=== PATIENT | male | born 1955 | race Caucasian/White ===

== ENCOUNTER 2019-03-23 16:42 | Inpatient (IN) | payer OTHER, MEDICARE ==
[~2019-03-23] VITALS: Ht 180.3 cm; Wt 74.3 kg
[2019-03-23] MEDS ORDERED: Megestrol400 MG/10 PO (17:34)
[2019-03-23] MEDS ORDERED: Zocor20 MG (17:35)
[2019-03-23] MEDS ORDERED: Glycotrol Caps1 EACH PO (17:36)
[2019-03-23] MEDS ORDERED: CYCL10 PO (17:36)
[2019-03-23] MEDS ORDERED: BUDE10.22 INH (17:36)
[2019-03-23] MEDS ORDERED: ALBU90OI INH (17:36)
--- NOTE | 2019-03-24 04:50 | NUR ---
SHIFT SUMMARY: 63 Y/O MALE RESTED COMFORTABLY ALL SHIFT, DENIES PAIN OR NAUSEA, TELEMETRY REFLECTS NSR WITH HEART RATE 70 PER ANA CARTON FILLER, PT HAS CONSULTS TODAY FROM DR SORIA--POSSIBLE DIAYLSIS PORT PLACEMENT AND [facility] (CONTACTED VIA ANSWERING SERVICE); SKIN PALE AND DRY, ALERT AND ORIENTED X 2, ABLE TO FOLLOW SIMPLE VERBAL COMMANDS, BED ALARM APPLIED, BED LOW POSITION WITH CALL LIGHT AT SIDE.
[2019-03-24 06:09] LABS: BASOPHILS ABSOLUTE AUTO 0.05 K/mm3 (0.00-0.23); BASOPHILS PERCENT AUTO 1 % (0-2); EOSINOPHILS ABSOLUTE AUTO 0.19 K/mm3 (0.00-0.68); EOSINOPHILS PERCENT AUTO 2 % (0-6); Hematocrit 32.4 % (37.0-53.0); Hemoglobin 10.4 g/dL (13.5-17.5); IMMATURE GRAN ABSOLUTE AUTO 0.09 K/mm3 (0.00-0.10); IMMATURE GRAN PERCENT AUTO 1 % (0-1); LYMPHOCYTES ABSOLUTE AUTO 1.55 K/mm3 (0.84-5.20); LYMPHOCYTES PERCENT AUTO 19 % (21-46); MONOCYTES ABSOLUTE AUTO 0.77 K/mm3 (0.16-1.47); MONOCYTES PERCENT AUTO 10 % (4-13); Mean Corpuscular HGB 28.5 pg (26.0-34.0); Mean Corpuscular HGB Conc 32.1 g/dL (31.5-36.5); NEUTROPHILS ABSOLUTE AUTO 5.36 K/mm3 (1.96-9.15); NEUTROPHILS PERCENT AUTO 67 % (41-73); Platelet Count 239 K/mm3 (150-400); RDW Coefficient Variation 13.5 % (11.7-14.2); RDW Standard Deviation 43.9 fL (35.1-46.3); Red Blood Cell Count 3.65 M/mm3 (4.30-5.90); White Blood Cell Count 8.01 K/mm3 (4.00-11.30)
[2019-03-24 06:13] LABS: Mean Corpuscular Volume 89 fL (80-100)
[2019-03-24 06:41] LABS: Albumin, Blood 2.9 g/dL (3.4-5.0); Anion Gap 7 mmol/L (6-16); Blood Urea Nitrogen 67 mg/dL (8-24); CO2, Blood 21 mmol/L (21-32); Calcium, Blood 11.4 mg/dL (8.5-10.1); Chloride, Blood 111 mmol/L (98-108); Creatinine, Blood 4.48 mg/dL (0.60-1.20); Glomerular Filtration Rate 14 (60-); Glucose, Blood 97 mg/dL (70-99); Magnesium, Blood 2.4 mg/dL (1.6-2.4); Phosphorus, Blood 3.5 mg/dL (2.5-4.9); Potassium, Blood 5.7 mmol/L (3.5-5.5); Sodium, Blood 139 mmol/L (136-145)
--- NOTE | 2019-03-24 16:02 | NUR ---
Patient is stiing up in bed and alert. Patient has a hearing aid in but struggles to hear. Patient is talkative and tells me about his family, his jorge (Christian) and his medical history. Patient is believing God for a miracle and testifies that he has had miracle healings in the past. He believes God can heal him he just doesn't know if it is his tiem to go or not. Patient is very kind and upbeat but gets teary eyed when I provide prayer for him. He quickly changes the subject to avoid further investigation as to why the tears. Patient voices repeatedly his gratitude for my time and for the prayer. I will continue to remain available to patient and family.
--- NOTE | 2019-03-24 18:52 | NUR ---
SHIFT SUMMARY PT AXO, PLEASANT AND COOPERATIVE WITH CARE THOUGH [place]. VSS. PT NPO THROUGHOUT THE DAY. DIALYSIS CATH PLACED IN L. UPPER CHEST THIS AFTERNOON, SEE NOTE. PT DENIES PAIN BUT COMPLAINS OF BEING TIRED AND WANTING TO SLEEP TONIGHT. DR RANKIN NOTIFIED AND NEW ORDERS PLACED FOR MEDICATION TO HELP PT SLEEP. BED IN LOW POSITION, CALL LIGHT WITHIN REACH, BED ALARM ON.
[2019-03-25 05:08] LABS: Hematocrit 33.1 % (37.0-53.0); Hemoglobin 10.4 g/dL (13.5-17.5)
[2019-03-25 05:25] LABS: Anion Gap 7 mmol/L (6-16); Blood Urea Nitrogen 64 mg/dL (8-24); Bun/Creatinine Ratio 14.3 (12.0-20.0); CO2, Blood 21 mmol/L (21-32); CPK Creatine Kinase 103 U/L (39-308); Calcium, Blood 10.8 mg/dL (8.5-10.1); Chloride, Blood 113 mmol/L (98-108); Creatinine, Blood 4.46 mg/dL (0.60-1.20); Glomerular Filtration Rate 14 (60-); Glucose, Blood 85 mg/dL (70-99); Magnesium, Blood 2.2 mg/dL (1.6-2.4); Phosphorus, Blood 3.4 mg/dL (2.5-4.9); Potassium, Blood 5.2 mmol/L (3.5-5.5); Sodium, Blood 141 mmol/L (136-145); Uric Acid, Blood 8.5 mg/dL (3.5-7.2)
--- NOTE | 2019-03-25 05:46 | NUR ---
Shift summary: Patient is A&O x4, VS have remained stable s/p permacath placement 03/24/19. Patient was given Restoril at HS for sleep with poor effect. Pain is reported in left chest wall, permacath site. Tylenol was given with poor effect. orthopedically impaired teacher MD was notified of unrelieved pain and order for tramadal 100mg po q 8 hours was obtained. Patient had good effect from tramadol. Patient has verbalized anxiety and uncertainty about recent medical diagnosis and is unable to sleep due to these thoughts. Patient is allowed to verbalize feelings and is given emotional support.
--- NOTE | 2019-03-25 09:15 | NUR ---
PT TO DIALYSIS.
--- NOTE | 2019-03-25 17:41 | NUR ---
SHIFT SUMMARY- PT A/O, COOPERATIVE AND PLESANT. PT TO DILAYSIS TODAY. PT TOLERATED WELL. PT AND SON DROVE IN FROM [place] TO [facility]. DR BROWN REPORTED PLAN TO TRANSFER PT TO [place] TOMORROW. PT APPETITE IS POOR. PT IV IS SALINE LOCKED AND FLUSHING WELL.
--- NOTE | 2019-03-26 03:55 | NUR ---
RESTING QUIETLY WITH FEW INTERRUPTIONS THIS SHIFT. AFFECT AND BEHAVIOR CHEERFUL AND ATTENTIVE WHEN INTERACTING. NO NOTED ACUTE DISTRES OF THIS WRITING. CALL LIGHT IN REACH.
[2019-03-26 05:09] LABS: HBSAG SCREEN Negative (Negative); HEP A AB, IGM Negative (Negative); HEP B CORE AB, IGM Negative (Negative); HEP C VIRUS AB 0.2 (0.0-0.9)
[2019-03-26 05:54] LABS: Hematocrit 30.7 % (37.0-53.0); Hemoglobin 9.8 g/dL (13.5-17.5)
[2019-03-26 06:18] LABS: Albumin, Blood 2.8 g/dL (3.4-5.0); Anion Gap 8 mmol/L (6-16); Blood Urea Nitrogen 41 mg/dL (8-24); Bun/Creatinine Ratio 10.9 (12.0-20.0); CO2, Blood 26 mmol/L (21-32); Calcium, Blood 9.9 mg/dL (8.5-10.1); Chloride, Blood 105 mmol/L (98-108); Creatinine, Blood 3.76 mg/dL (0.60-1.20); Glomerular Filtration Rate 17 (60-); Glucose, Blood 95 mg/dL (70-99); Magnesium, Blood 2.1 mg/dL (1.6-2.4); Phosphorus, Blood 2.9 mg/dL (2.5-4.9); Potassium, Blood 4.4 mmol/L (3.5-5.5); Sodium, Blood 139 mmol/L (136-145)
--- NOTE | 2019-03-26 09:09 | NUR ---
PT TO DIALYSIS.
--- NOTE | 2019-03-26 17:00 | NUR ---
PT LEFT UNIT VIA GURNEY AT 1700 WITH [facility] TO TRANSPORT TO [facility] FOR UROLOGY CARE. REPORT CALLED TO CHRIS. PT FAMILY AT BEDSIDE MOST OF THE DAY. PT A/O, PLESANT AND COOPERATIVE. DILAYSIS TODAY, PT TOLERATED WELL.
== END 2019-03-26 16:59 | disposition short-term general hospital (02) | DRG 683 ==
LOC: ER 16:42 → MEDS 22:01 → ENPENDDIS 03-26 15:52 → MEDS 03-26 16:59
PROVIDERS: Internal Medicine Nephrology; Nurse Practitioner Acute Care; ADMIT Hospitalist
DX: N17.9 Acute kidney failure, unspecified (principal); C78.00 Secondary malignant neoplasm of unspecified lung; C64.9 Malignant neoplasm of unspecified kidney, except renal pelvis; E87.2 Acidosis; E87.1 Hypo-osmolality and hyponatremia; G89.29 Other chronic pain; M54.2 Cervicalgia; E78.5 Hyperlipidemia, unspecified; E87.5 Hyperkalemia; J44.9 Chronic obstructive pulmonary disease, unspecified; R63.4 Abnormal weight loss; D63.1 Anemia in chronic kidney disease; E83.52 Hypercalcemia; E11.22 Type 2 diabetes mellitus with diabetic chronic kidney disease; N18.9 Chronic kidney disease, unspecified; E88.09 Other disorders of plasma-protein metabolism, not elsewhere classified; Z87.891 Personal history of nicotine dependence
CPT/HCPCS: 36415; 36558; 70450; 71250; 74176; 76937; 80069; 80074; 82550; 82947; 83735; 84550; 85014; 85018; 85025; 86317; 93005; 93010; 94640; 94760; 96374; 99152; 99153; 99285-25; A9270; C1750; C1769; J0881; J1644; J2250; J3010; J7030; J7040

== ENCOUNTER 2019-05-11 16:12 | Inpatient (IN) | payer OTHER, MEDICARE ==
[~2019-05-11] VITALS: Ht 180.3 cm; Wt 76.8 kg
[~2019-05-11 16:12] MED LIST: ALBU90OI INH; BUDE10.22 INH; CYCL10 PO; Glycotrol Caps1 EACH PO; Megestrol400 MG/10 PO; Zocor20 MG
[2019-05-11 16:35] LABS: Calcium, Ionized (POC) 1.03 mmol/L (1.10-1.46); Chloride (POC) 101 mmol/L (98-108); Creatinine (POC) 8.3 mg/dL (0.8-1.3); Glucose (ISTAT POC) 118 mg/dL (70-99); Hemoglobin (POC) 8.8 g/dL (13.5-17.5); Potassium (POC) 5.6 mmol/L (3.5-5.5); Sodium (POC) 135 mmol/L (135-148); Total CO2 (POC) 25 mmol/L (21-32)
[2019-05-11] MEDS ORDERED: MULVITB PO (16:35)
[2019-05-11 16:53] LABS: BASOPHILS ABSOLUTE AUTO 0.07 K/mm3 (0.00-0.23); BASOPHILS PERCENT AUTO 0 % (0-2); EOSINOPHILS ABSOLUTE AUTO 0.31 K/mm3 (0.00-0.68); EOSINOPHILS PERCENT AUTO 2 % (0-6); Hematocrit 28.3 % (37.0-53.0); Hemoglobin 8.4 g/dL (13.5-17.5); IMMATURE GRAN ABSOLUTE AUTO 0.42 K/mm3 (0.00-0.10); IMMATURE GRAN PERCENT AUTO 2 % (0-1); LYMPHOCYTES ABSOLUTE AUTO 2.69 K/mm3 (0.84-5.20); LYMPHOCYTES PERCENT AUTO 15 % (21-46); MONOCYTES ABSOLUTE AUTO 1.44 K/mm3 (0.16-1.47); MONOCYTES PERCENT AUTO 8 % (4-13); Mean Corpuscular HGB 29.8 pg (26.0-34.0); Mean Corpuscular HGB Conc 29.7 g/dL (31.5-36.5); Mean Platelet Volume 10.6 fL (9.1-12.4); NEUTROPHILS ABSOLUTE AUTO 12.99 K/mm3 (1.96-9.15); NEUTROPHILS PERCENT AUTO 73 % (41-73); NRBC ABSOLUTE 0.05 K/mm3 (0.00-0.02); NRBC Auto 0.3 /100 WBC (0.0-0.2); Platelet Count 351 K/mm3 (150-400); RDW Coefficient Variation 19.8 % (11.7-14.2); RDW Standard Deviation 62.3 fL (35.1-46.3); Red Blood Cell Count 2.82 M/mm3 (4.30-5.90); White Blood Cell Count 17.92 K/mm3 (4.00-11.30)
[2019-05-11 16:57] LABS: Mean Corpuscular Volume 100 fL (80-100)
[2019-05-11 17:26] LABS: Albumin, Blood 2.2 g/dL (3.4-5.0); Albumin/Globulin Ratio 0.5 (0.8-1.8); Bilirubin, Total 0.6 mg/dL (0.1-1.0); Bun/Creatinine Ratio 10.8 (12.0-20.0); Calcium, Blood 8.5 mg/dL (8.5-10.1); Creatinine, Blood 7.7 mg/dL (0.60-1.20); Globulin, Blood 4.5 g/dL (2.2-4.0); Magnesium, Blood 2.7 mg/dL (1.6-2.4); Phosphorus, Blood 6.6 mg/dL (2.5-4.9); Potassium, Blood 5.4 mmol/L (3.5-5.5); Total Protein, Blood 6.7 g/dL (6.4-8.2)
[2019-05-11 17:29] LABS: Troponin I 0.102 ng/mL (0.000-0.040)
--- NOTE | 2019-05-11 20:53 | NUR ---
PATIENT ARRIVED TO ICU 11 VIA GURNEY WITH BIPAP IN PLACE. PATIENT AWAKE ANSWERING SIMPLE QUESTIONS. ONLY ABLE TO SPEAK IN 1-2 WORD SENTENCES DUE TO BEING SOB. PLACED ON 4L/NC WHEN OFF BIPAP FOR SHORT TIME. LEVOPHED INFUSING AT 6 MCG DUE TO HYPOTENSION. PATIENT TRANSFERRED TO BED USING SLIDER SHEET AND PLACED ON ICU MONITORS. [facility] CALLED FOR [facility]IENT INFORMATION FOR ADMIT HX.
--- NOTE | 2019-05-11 22:35 | NUR ---
DOCTOR FELIPE NOTIFIED OF CONSULT, SEE NEW ORDERS.
[2019-05-11 22:53] LABS: PCO2 Arterial 37.2 mmHg (35-45); PO2 Arterial 63.7 mmHg (80-100); pH Blood Arterial 7.41 (7.35-7.45)
[2019-05-11 23:57] LABS: Troponin I 0.076 ng/mL (0.000-0.040)
[2019-05-12] MEDS ORDERED: DOCU100 PO (01:08)
[2019-05-12] MEDS ORDERED: PREG150 PO (01:10)
[2019-05-12] MEDS ORDERED: SENN187 PO (01:10)
[2019-05-12] MEDS ORDERED: CYCL10 PO (01:12)
[2019-05-12] MEDS ORDERED: Simvastatin40 MG PO (01:13)
[2019-05-12] MEDS ORDERED: Aspir 8181 MG PO (01:14)
[2019-05-12 03:49] LABS: BASOPHILS ABSOLUTE AUTO 0.08 K/mm3 (0.00-0.23); BASOPHILS PERCENT AUTO 1 % (0-2); EOSINOPHILS ABSOLUTE AUTO 0.47 K/mm3 (0.00-0.68); EOSINOPHILS PERCENT AUTO 3 % (0-6); Hematocrit 29.6 % (37.0-53.0); Hemoglobin 8.7 g/dL (13.5-17.5); IMMATURE GRAN ABSOLUTE AUTO 0.47 K/mm3 (0.00-0.10); IMMATURE GRAN PERCENT AUTO 3 % (0-1); LYMPHOCYTES ABSOLUTE AUTO 2.09 K/mm3 (0.84-5.20); LYMPHOCYTES PERCENT AUTO 12 % (21-46); MONOCYTES ABSOLUTE AUTO 1.33 K/mm3 (0.16-1.47); MONOCYTES PERCENT AUTO 8 % (4-13); Mean Corpuscular HGB 29.8 pg (26.0-34.0); Mean Corpuscular HGB Conc 29.4 g/dL (31.5-36.5); Mean Corpuscular Volume 101 fL (80-100); Mean Platelet Volume 10.2 fL (9.1-12.4); NEUTROPHILS ABSOLUTE AUTO 13.17 K/mm3 (1.96-9.15); NEUTROPHILS PERCENT AUTO 75 % (41-73); NRBC ABSOLUTE 0.03 K/mm3 (0.00-0.02); NRBC Auto 0.2 /100 WBC (0.0-0.2); Platelet Count 324 K/mm3 (150-400); RDW Coefficient Variation 20.2 % (11.7-14.2); RDW Standard Deviation 63.3 fL (35.1-46.3); Red Blood Cell Count 2.92 M/mm3 (4.30-5.90); White Blood Cell Count 17.61 K/mm3 (4.00-11.30)
[2019-05-12 04:06] LABS: International Normalized Ratio 0.98; Prothrombin Time Results 10.4 Sec (9.7-11.5)
[2019-05-12 04:14] LABS: Magnesium, Blood 2.7 mg/dL (1.6-2.4)
[2019-05-12 04:18] LABS: Albumin, Blood 2.2 g/dL (3.4-5.0); Albumin/Globulin Ratio 0.5 (0.8-1.8); Bilirubin, Total 0.4 mg/dL (0.1-1.0); Bun/Creatinine Ratio 10.6 (12.0-20.0); Calcium, Blood 8.5 mg/dL (8.5-10.1); Creatinine, Blood 8.01 mg/dL (0.60-1.20); Globulin, Blood 4.5 g/dL (2.2-4.0); Phosphorus, Blood 6.6 mg/dL (2.5-4.9); Potassium, Blood 5.6 mmol/L (3.5-5.5); Total Protein, Blood 6.7 g/dL (6.4-8.2)
--- NOTE | 2019-05-12 06:07 | NUR ---
SUMMARY PATIENT USING BIPAP T/O NIGHT WITH SHORT BREAKS ON 4L/NC. PATIENT CONTINUES TO BECOME SOB WITH SLIGHT ACTIVITY. ORIENTATED TO PERSON AND BEING IN THE HOSPITAL. PATIENT UNABLE TO SARAH LAYING FLAT OR LAYING ON SIDE FOR LONG. LEVOPHED CONTINUES, TITRATING TO 4 MCG. DOCTOR FELIPE IN TO SEE PATIENT AGAIN THIS AM, PLAN TO HAVE DIALYSIS FIRST THING THIS AM WITH 1 UNIT PRBC WITH DIALYSIS AND TO OBTAIN BLOOD CX FROM DIALYSIS LINE TODAY. ALSO PLAN TO HAVE ECHO AND ULTRA SOUND GUIDE THORACENTESIS TODAY.
--- NOTE | 2019-05-12 08:00 | NUR ---
ASSESSMENT- PT AWAKE, ALERT, ABLE TO SAY BRIEF ANSWERS TO QUESTIONS, FOLLOWS DIRECTIONS. ON BIPAP, DENIES SOB AT REST BUT BIPAP REMOVED BRIEFLY AND BECAME QUICKLY SOB. REPOSITIONED WITH IMPROVEMENT. LUNGS BRONCHIAL SOUNDS LEFT BASE, DIMINISHED RIGHT BASE. SBP 80-90'S. LEVOPHED GTT AT 2 MCG/MIN, PIV X 2 INTACT. NO APPETITE. SUPRIYA CANSECO SETTING UP FOR DIALYSIS. COCCYX DDI. LEGS AND FEET SWOLLEN
--- NOTE | 2019-05-12 08:46 | NUR ---
DIALYSIS STARTED. TO GET ONE UNIT BLOOD WITH DIALYSIS. DR. MCKINLEY HERE-UPDATED. PT WITH INCREASED WOB, RR 30. FI02 INCREASED TO 75% TO MAINTAIN SATURATIONS. HYPOTENSIVE. LEVOPHED INCREASED TO 5 MCG/MIN. LEFT WRIST SITE TENDER, CHANGED TO RIGHT AC SITE-BLOOD RETURN PRESENT
--- NOTE | 2019-05-12 09:15 | NUR ---
RESPIRATORY TREATMENT, CHANGES TO BIPAP PER THERAPIST. PT BREATHING IMPROVED, ABLE TO RELAX. BP IMPROVED. BLOOD INFUSED WITH DIALYSIS
--- NOTE | 2019-05-12 10:57 | NUR ---
PT'S CALLED-UPDATED. DIALYSIS INCOMPLETE-CATHETER NOT INFUSING. PAWEL NOTIFIED . CATH LIDIA TO BE PLACED. PT AWAKE, ALERT. TOLERATING BIPAP. LEVOPHED AT 2 MCG/MIN
--- NOTE | 2019-05-12 11:12 | NUR ---
HEMODIALYSIS WITH ONE UNIT PRBC ORDERED THIS AM BY DR WANG. HD STARTED WITHOUT PROBLEM WITH QB 250 ML/MIN. PRBC STARTED AND INFUSING WELL. AT ABOUT 30 MIN INTO TREATMENT ARTERIAL FLOW FROM CVC BEGAN TO SPASM IN CONJUCTION WITH PATIENT'S RESPIRATORY DISTRESS. SOON THE BLOOD IN THE SYSTEM BEGAN TO DARKEN AND VENTURA PRESSURE BEGAN TO RISE. TRANSFUSION WAS STOPPED AND BLOOD WAS IMMEDIATELY REURNED. THE DIALYZER WAS VERY DARK AND DIFFICULT TO CLEAR. SMALL ENGINE MECHANIC WAS RENEWED AND TX WAS RESTARTED AND TRANSFUSION WAS COMPLETED. ARTERIAL FLOW AGAIN BEGAN TO DIMINISH AND WITHIN 30 MIN CVC WAS UNABLE TO GIVE ADEQUATE FLOW FOR HD FROM EITHER PORT. ACTIVASE 2 MG WAS INSTILLED IN EACH CVC PORT FOR 30 MIN DWELL. AFTER DWELL, FULL ASPIRATION FROM EITHER PORT WAS STILL NOT POSSIBLE. AFTER CONSULT WITH DR WANG, ADDITIONAL DOSE OF ACTIVASE WAS INSTILLED IN EACH CVC PORT FOR MULTI HOUR DWELL. WILL RECHECK LATER TODAY FOR EFFICACY.
[2019-05-12 11:23] LABS: Vancomycin, Random 19.5 ug/mL
--- NOTE | 2019-05-12 12:19 | NUR ---
Echocardiogram completed.
--- NOTE | 2019-05-12 13:29 | NUR ---
PT AWAKE, ABLE TO FOLLOW DIRECTIONS. GIVEN SIPS WATER-POOR TOLERANCE FOR ANY ACTIVITY, SATURATIONS DECREASE QUICKLY TO 80% WITHOUT BIPAP EVEN WITH NASAL CANNULA. PICKING AT SOME LINES. LEVOPHED REMAINS OFF
--- NOTE | 2019-05-12 14:51 | NUR ---
THORACENTESIS DONE AT BEDSIDE. PT ABLE TO SIT UP AT EDGE OF BED WITH ASSIST. TOLERATED MOVEMENT FAIR. HEARTRATE 90'S. DENIES PAIN BUT DOES MOAN AT TIMES. 1400 CC REDDISH FLUID FROM THORANCESIS. LUNGS CLEAR, BRONCHIAL LEFT BASE, IMPROVED SOUNDS RIGHT BASE.
[2019-05-12 15:30] LABS: Automated BF RBC Count 0.032 M/mm3 (0-0); Automated BF WBC Count 0.302 K/mm3 (0-999); Body Fluid WBC Count 302 /mm3 (0-999); RBC Count, Body Fluid 32000 /mm3 (0-0)
[2019-05-12 15:33] LABS: Albumin, Body Fluid 1.9 g/dL; Glucose, Body Fluid 119 mg/dL; Lactate Dehydrogenase, Body Fl 180 U/L; Protein, Body Fluid 4.1 g/dL
--- NOTE | 2019-05-12 15:43 | NUR ---
HYPOTENSIVE SBP 80'S. PT AWAKE, ALERT. STATES BREATHING EASIER. DR. MCKINLEY HERE-UPDATED. ORDERS FOR PICC LINE. DIALYSIS BEING SET UP.
[2019-05-12 16:40] LABS: Total Cell Count, Body Fluid 100
[2019-05-12 16:41] LABS: Appearance, Body Fluid Cloudy (Clear); Color, Body Fluid Amber (None-Yellow)
[2019-05-12 17:00] LABS: pH, Body Fluid 6.1
--- NOTE | 2019-05-12 18:48 | NUR ---
DIALYSIS COMPLETE. LEVOPHED REMAINS ON FOR BP SUPPORT. PREPARING FOR PICC LINE PLACEMENT. PT'S HERE-UDPATED. PT TOOK FEW BITES PUDDING WITH ASSIST, DESATS WHEN OFF BIPAP EVEN WITH 15 OXYMIZER. LARGE TIDAL VOLUMES ON BIPAP. SKIN PALE, DRY. ANURIC.
--- NOTE | 2019-05-12 18:49 | NUR ---
Spiritual Care inital note: Mr. Cortes did not speak to me. He was trembling and held onto my hand tightly while I sat with him. Provided calm presence, assurance of care, and prayer. No family/friends present. I will remain available.
--- NOTE | 2019-05-12 21:55 | NUR ---
ASSUMPTION OF CARE: PT ALERT AND AWAKE AT BEGINNING OF SHIFT. FOLLOWS DIRECTIONS HOWEVER DOES NOT VERBALIZE NEEDS. PT FEBRILE AT 99.6. PT UNDERWENT THORACENTESIS TODAY. LUNG SOUNDS COURSE AND DIM. ON BIPAP 05/16, FI02 70%. PT IS UNABLE TO BE OFF BIPAP AND ON OXYMIZER FOR LONG, IMMEDIATELY DESATTING TO [id number]. PT IN SR, HR IN THE 80S, SBP IN THE 90S WITH LEVOPHED AT 5MCG. ANURIA AND WILL TAKE SIPS OF WATER. IV IN RAC, PICC IN YONI-CURRENTLY INFUSING. PT IS ON DIALYSIS, CATH IN L CHEST. ESRD W/ RENAL CELL CARCINOMA. REPORTEDLY BEGAN CHEMO LAST WEEK AND WILL RECEIVE CHEMO ONCE A MONTH ACCORDING TO . CODE STATUS DISCUSSED WITH . PER PT IS FULL CODE.
[2019-05-13 04:08] LABS: BASOPHILS ABSOLUTE AUTO 0.03 K/mm3 (0.00-0.23); BASOPHILS PERCENT AUTO 0 % (0-2); EOSINOPHILS ABSOLUTE AUTO 0.12 K/mm3 (0.00-0.68); EOSINOPHILS PERCENT AUTO 1 % (0-6); Hematocrit 27.7 % (37.0-53.0); Hemoglobin 8.2 g/dL (13.5-17.5); IMMATURE GRAN PERCENT AUTO 3 % (0-1); LYMPHOCYTES ABSOLUTE AUTO 2.09 K/mm3 (0.84-5.20); LYMPHOCYTES PERCENT AUTO 12 % (21-46); MONOCYTES ABSOLUTE AUTO 1.17 K/mm3 (0.16-1.47); MONOCYTES PERCENT AUTO 7 % (4-13); Mean Corpuscular HGB 29.5 pg (26.0-34.0); Mean Corpuscular HGB Conc 29.6 g/dL (31.5-36.5); Mean Corpuscular Volume 100 fL (80-100); Mean Platelet Volume 10.4 fL (9.1-12.4); NEUTROPHILS PERCENT AUTO 78 % (41-73); NRBC ABSOLUTE 0.03 K/mm3 (0.00-0.02); NRBC Auto 0.2 /100 WBC (0.0-0.2); Platelet Count 284 K/mm3 (150-400); RDW Coefficient Variation 19.8 % (11.7-14.2); RDW Standard Deviation 60.3 fL (35.1-46.3); Red Blood Cell Count 2.78 M/mm3 (4.30-5.90); White Blood Cell Count 18.11 K/mm3 (4.00-11.30)
[2019-05-13 04:29] LABS: Albumin/Globulin Ratio 0.5 (0.8-1.8); Bilirubin, Total 0.5 mg/dL (0.1-1.0); Bun/Creatinine Ratio 9.6 (12.0-20.0); Calcium, Blood 8.2 mg/dL (8.5-10.1); Creatinine, Blood 6.36 mg/dL (0.60-1.20); Globulin, Blood 4.2 g/dL (2.2-4.0); Magnesium, Blood 2.4 mg/dL (1.6-2.4); Phosphorus, Blood 5.4 mg/dL (2.5-4.9); Potassium, Blood 4.8 mmol/L (3.5-5.5); Total Protein, Blood 6.2 g/dL (6.4-8.2)
--- NOTE | 2019-05-13 05:54 | NUR ---
SHIFT SUMMARY: PT ALERT HOWEVER SOMEWHAT AGITATED AT TIMES. ABLE TO FOLLOW COMMANDS. FEBRILE THROUGHOUT SHIFT WITH TEMP IN THE 99S. LUNG SOUNDS TIGHT AND DIM IN BASES. SP02 >90% ON BIPAP. SETTINGS ARE 12/7, FI02 70%. PT AT TIMES DID NOT TOLERATE BIPAP WELL AND WOULD OCCASIONALLY TAKE BIPAP OFF RESULTING IN RAPID DESATS INTO MID 80S. PT WAS ABLE TO TOLERATE OXYMIZER FOR VERY SHORT PERIODS OF TIME BEFORE REQUIRING BIPAP. PT IN SR WITH OCC PACS. SBP IN BETWEEN 90S-110S, HR IN THE 80S. BOWET TONES X 4, NO BM THIS SHIFT. PT HAS NOT PRODUCED ANY URINE THIS SHIFT. IS A DIALYSIS PT WITH ESRD/RENAL CARCINOMA. DIALYSIS CATH TO L UPPER CHEST. RAC IN PLACE AND SL. PICC TO YONI INFUSING WITH LEVOPHED AT 9MCG.
--- NOTE | 2019-05-13 07:20 | NUR ---
ASSUMED CARE AT 0700. REPORT FROM KIMBERLY CANSECO. PT RESTING IN BED. BIPAP IN PLACE, 05/16 70%. LUNGS c CRACKLES ON LEFT SIDE, DIMINSHED IN BASES. PER NOC RN, PT DID NOT TOLERATE BEING OFF BIPAP, RT CONSULTS FOR POSSIBLE AIRVO PLACEMENT TODAY. PT MAKES EYE CONTACT. VERY [place]. FOLLOWS COMMANDS. ABD ROUND, SOFT NON TENDER, BT X 4. SKIN C/D/I. POWERGLIDE TO LUE, INFUSING LEVOPHED AT 8 MCG/MIN. WILL CONTINUE TO TITRATE FOR MAP >60. PERMACATH TO RIGHT CHEST WALL, DRESSING C/D/I. CALL LIGHT IN REACH. WILL CONTINUE TO MONITOR.
--- NOTE | 2019-05-13 08:44 | NUR ---
DR BERNARDO IN TO SEE PT. PT CURRENTLY ON AIRVO, 60l 88%, SATS MID 90'S. PT [place]. GIVES ON2 WORD RESPONSES c SPOKEN TO LOUDLY. STATES HE IS ON HOME O2 AT 2L. DENIES PAIN. CALL PLACED TO NAEEM, SO, SCHEDULED APPT FOR 1100 FOR HER TO SPEAK c DR BERNARDO IN ROOM. WILL CONTINUE TO MONITOR.
--- NOTE | 2019-05-13 12:15 | NUR ---
DIALYSIS KICK PLATE INSTALLER CALLED AND THEN PALLITIVE CARE RN CAME TO TELL US THAT THE FAMILY IS MAKING A DECISION FOR COMFORT CARE. NO DIALYSIS AT THIS TIME.
--- NOTE | 2019-05-13 12:41 | NUR ---
MEETING c CHANDLER TONG FROM [facility] AND NAEEM. PROGNOSIS AND CARE PLAN DISCUSSED. NAEEM STATES SHE IS GOING TO DISCUSS c SON AND DAUGHTER COMFORT CARE AND COME BACK AFTER A DECISION IS MADE. ALL QUESTIONS ANSWERED AT THIS TIME. PHONE NUMBER PROVIDED FOR SON AND DAUGHTER TO USE IF NECESSARY.
--- NOTE | 2019-05-13 14:03 | NUR ---
Called by physician to meet with patient and his . Review of prognosis and care needs. Review of end of life care with . She was expecting to have to conversation. Pt demonstrated understanding and acceptance of his care needs and end of life needs. She spoke with their children and thay all agree it time for comfort measures and hospice. She will tell the patient. He is very hard of hearing. Met with her she had questions about funneral care needs and the process. Will get her VA information and updated chaplian [place] on her needs.
--- NOTE | 2019-05-13 16:03 | NUR ---
pt not able to hear well enough or track conversation. states he has been incresing in his cinfusion and anexiety and less speaking and eating. pt and children decided on confort care. physician notified. pt does not want us to use certain language with patient. She states if we talk of deth or dying or hospice if he can hear us he will panic. They state this has been getting worse. We will respect her request and have chaplian assist her. She states he is very protective of the family and gets anxious if they are upset or express much emotion. she states they all knew this was going to happen but they have not talked about it until today.
--- NOTE | 2019-05-13 16:55 | NUR ---
SHIFT SUMMARY PT c AIRVO 60L, 88%, O2 SATS MID 90'S. PT WORE AIRVO MOST OF SHIFT. FAMILY MEETING c , NAEEM, CHANDLER, PALLATIVE JUANIS AND DR MCKINLEY. NAEEM NOTIFIED EXTENDED FAMILY BY PHONE. PT STATUS CHANGED TO COMFORT CARE, DNR. PER NAEEM REQUEST, PT NOT TO BE INFORMED OF COMFORT CARE. NAEEM EXPRESSED CONCERNS ABOUT ANXIETY IF PT KNEW. DISCUSSED c CHANDLER AND OUTSIDE ENERGY SALES REPRESENTATIVES. ATTEMPTED TO FEED PT TODAY. PT DOES NOT HAVE DENTURES. GIVEN PO FLUIDS AND POPSICLES s DIFFICULTY. NO URINARY OUTPUT TODAY. ESRD. STATUS CHANGE TO MEDICAL, AWAITING TRANSFER. REPORT TO ONCOMING NURSE.
--- NOTE | 2019-05-13 17:43 | NUR ---
PT TO MEDICAL FLOOR. REPORT TO JOHN CANSECO. ALL BELONGINGS c PT.
--- NOTE | 2019-05-13 18:09 | NUR ---
RECEIVED PT 1944 FROM ICU. PT IS C/CARE. ALERT TO SELF, FAMILY. ANSWERS OCC QUEST. VERY [place]. SON IN ROOM. DENIES PAIN., ON AIRVO AT 60L/88% AT THIS TIME. RESTING RELAXED . FAMILY STATES CAN BE VERY HIGH ANX. MEDS AVAIL IF NEED. BED IN LOW POSITION, CALL LITE IN REACH, CALLS APPRO-P
--- NOTE | 2019-05-13 21:00 | NUR ---
FAMILY JUST LEFT. HE CONTINUES TO SIT UP IN BED. MOVES AROUND ONCE IN A WHILE DYSPNEA NOTED, RESTLESSNESS OCCATIONALLY. DENIES ANY NEED FOR MEDS EVEN THOUGH HE SEEMS TO BE UNCOMFORTABLE. WILL CONTINUE TO SEE IF i CAN TALK HIM INTO TAKING SOMETHING FOR HIS ANXIETY TO GET HIM CALM.
--- NOTE | 2019-05-13 22:12 | NUR ---
WAS ABLE TO TALK HIM INTO TAKING 1 MG OF ATIVAN TO HELP WITH HIS ANXIETY IT IS CAUSING HIM TO BE RESTLESS AND PULLING OFF HIS MASK TWICE NOW. HE HAS SAT UP IN BED TRYING TO CATCH HIS BREATH DUE TO AIR HUNGER. WILL CONTINUE TO MONITOR TO SEE IF THIS WORKS, IF NOT WILL TRY TO GIVE SOME ROXINAL IF HE WILL TAKE IT.
--- NOTE | 2019-05-13 23:46 | NUR ---
PATIENT VISITING WITH FAMILY, BROUGHT IN DOGS TO SEE HIM, SON IS ALSO IN THE ROOM. HE IS ON A AIRVO AT 60% OXYGEN. HE GETS ANXIOUS EVERY NOW AND THEN BUT TENDS TO SETTLE DOWN WITH THE FAMILY THERE. WILL CONTINUE TO MONITOR HIM. DENIES ANY PAIN OR ANXIETY MEDS AT THIS TIME.
--- NOTE | 2019-05-14 00:03 | NUR ---
PATIENT HAS CALMED DOWN SOME, WILL OCCATIONALLY READJUST SELF IN BED, OR ADJUST MASK. BREATHING HAS SLOWED DOWN, SOME AND HIS ANXIETY HAS DECREASED. WILL CONTINUE TO MONITOR FOR CHANGES IN DISCOMFORT AND MEDICATE APPROPRIATLY.
--- NOTE | 2019-05-14 01:49 | NUR ---
PATIENT CONTINUES TO BE RESTLESS PULLING OFF HIS OXYGEN STATING HE IS HOT. FAN WAS GIVEN. NO CHANGE IN RESTLESSNESS, NOT SLEEPING. RESP FAST AND SHALLOW. WILL MEDICATE WITH ATIVAN.
--- NOTE | 2019-05-14 04:29 | NUR ---
PATIENT IS RESTING OFF AND ON, IS MORE CALM THEN HE HAS BEEN, NOT PULLING AT HIS MASK OR RESTLESS IN THE BED. HE IS SITTING UP WITH EYES CLOSED AND BREATHING 26 BREATHS A MIN ON 60% OXYGEN. CALL LIGHT IN REACH
--- NOTE | 2019-05-14 05:57 | NUR ---
SHIFT SUMMARY: 63 Y/O MALE ADMITTED FOR SEVERE SEPSIS, AND ACUTE KIDNEY INJURY NOW ON COMFORT CARE. HE HAD A ROUGH START TO THE SHIFT, BEING VERY RESTLESS AND AIR HUNGER. HE REFUSED TO HAVE PAIN MEDS AND ANXIETY MEDS AT FIRST BUT THEN WAS ABLE TO CONVINCE HIM THAT THEY WOULD HELP RELEIVE HIS ANXIETY AND PAIN. HE WAS GIVEN ATIVAN PO FIRST WHICH DID NOT RELEIVE MUCH OF THE PAIN, ROXINAL WAS GIVEN BUT HE WAS STILL VERY ANXIOUS AND PULLING OFF HIS MASK SEVERAL TIMES, CAUSING HIS BREATHING TO GET WORSE. i THEN GAVE ATIVAN IV AND THIS HELPED TO CALM HIM DOWN AND ALLOW HIM TO SLEEP FOR A SHORT PERIOD. HE HAS REMAINED COMFORTABLE SINCE THEN. WILL REPORT TO DAY SHIFT RN.
--- NOTE | 2019-05-14 07:36 | NUR ---
PT RESTING WITH EYES CLOSED, APPEARS TO BE SLEEPING. NO S/SX OF DISTRESS OR DISCOMFORT, NO DYSPNEA. HOB 85 DEGREES, RELAXING ENVIRONMENT GIVEN WITH COMFORTING MUSIC, LIGHTS OFF BLINDS OPEN. NO FAMILY PRESENT.
--- NOTE | 2019-05-14 10:43 | NUR ---
0820 PT WITH INCREASED DYSPNEA, ROXONOL 10MG SL GIVEN WITH GOOD EFFECT. 0900 PT RESTING WITH EYES CLOSED, APPEARS TO BE SLEEPING NO DYSPNEA OBSERVED. 1030 PT CONTINUES TO REST WITH EYES CLOSED, NO S/SX OF DISCOMFORT OR DISTRESS.
--- NOTE | 2019-05-14 18:13 | NUR ---
SHIFT SUMMARY. PT LETHARGIC, SPEECH UNCOMPREHENSABLE ALL SHIFT. PT DYSPNEIC, MOANING, UNEASY, INTERMITTENTLY THROUGHOUT SHIFT. SYMPTOMS MANAGED WELL WITH CURRENT ORDERS, SEE EMAR. CONTINUES WITH HUMIDIFIED O2 15L HIGH FLOW NC. NO FAMILY OR VISITORS IN TODAY. PT WITH VERY POOR PO INTAKE TODAY, JUST SMALL SIPS OF NEPRO AND WATER.
--- NOTE | 2019-05-14 20:33 | NUR ---
05/14/192004 MOANING AT TIMES. MEDICATED PER AUG. ORAL CARE GIVEN WITH SWABS AND LIP OINTMENT. VERBALLY REASSURED BY RN AND ROLL CARRIER. CONSOLED WITH TOUCH ON HEAD AND SHOULDER. OPENS EYES BUT NO WORDS GIVEN. NO VOIDING AT THIS TIME. DIALYSIS CATH TO LEFT CHEST CLAMPED OFF.
--- NOTE | 2019-05-15 05:57 | NUR ---
05/15/19 0230 MOANING AND MEDICATED FOR PAIN PER AUG.
--- NOTE | 2019-05-15 06:26 | NUR ---
05/15/19 0600 RESTING COMFORTABLY WITHOUT DISTRESS. ORAL CARE GIVEN.
--- NOTE | 2019-05-15 08:36 | NUR ---
0715 PT RESTING IN BED WITH NO S/SX OF DISCOMFORT OR DISTRESS, APPEARS TO SLEEPING. ON 15L O2 VIA HIGH FLOW NC. NO FAMILY AT BEDSIDE.
--- NOTE | 2019-05-15 11:54 | NUR ---
Comfort Care Visit: Pt resting in bed upon arrival. Pt is non responsive with 10-12 seconds of apnea. Respiration rate is 8/min. Pt appears imminent but comfortable. Spoke with bedside RN Nasim and discussed case. Called Pt's and discussed S/S of actively dying. She states that she does not want to see him . Offered emotional support and discussed home choice. She reports she will call Palliative Care when family has decided. Palliative Care will remain available.
--- NOTE | 2019-05-15 12:23 | NUR ---
Spiritual care visit conducted. Patient is minimally responsive. I provide prayer and scripture reading. I will continue to be available to patient and family.
--- NOTE | 2019-05-15 13:52 | NUR ---
TIME OF 1341, DR. BESS AND CN NOTIFIED, FAMILY NOTIFIED OF PT'S PASSING BY PALLIATIVE CARE RN BARRY.
--- NOTE | 2019-05-15 13:52 | NUR ---
Pt visit this afternoon accompanied with bedside RN Nasim. Pt expires within in minutes of visit. HARLEEN Rouse calls TOD. Pt peacefully with no S/S of distress. Called and spoke with Pt's and informed her of Pt's passing. Offered condolences and emotional support. She reports no plan for Pt to be visited by family and transportation can be arranged immediately. No concerns reported at this time. Relayed information to Charge nurse Basilio. Palliative Care will remain available.
--- NOTE | 2019-05-15 15:31 | NUR ---
supportive follow up call to patients .
== END 2019-05-15 13:41 | DRG 871 ==
LOC: ER 16:12 → ICUW 17:06 → MEDS 05-13 17:42
PROVIDERS: Emergency Medicine; Internal Medicine Nephrology; ADMIT Hospitalist
PROC: 5A09457 Assistance with Respiratory Ventilation, 24-96 Consecutive Hours, Continuous Positive Airway Pressure (ICD-10-PCS; principal; 2019-05-11)
PROC: 0W993ZX Drainage of Right Pleural Cavity, Percutaneous Approach, Diagnostic (ICD-10-PCS; 2019-05-12)
PROC: 5A1D70Z Performance of Urinary Filtration, Intermittent, Less than 6 Hours Per Day (ICD-10-PCS; 2019-05-12)
PROC: 30233N1 Transfusion of Nonautologous Red Blood Cells into Peripheral Vein, Percutaneous Approach (ICD-10-PCS; 2019-05-12)
PROC: 02HV33Z Insertion of Infusion Device into Superior Vena Cava, Percutaneous Approach (ICD-10-PCS; 2019-05-12)
DX: A41.9 Sepsis, unspecified organism (principal); R65.21 Severe sepsis with septic shock; J96.01 Acute respiratory failure with hypoxia; N18.6 End stage renal disease; J18.9 Pneumonia, unspecified organism; C64.9 Malignant neoplasm of unspecified kidney, except renal pelvis; C78.00 Secondary malignant neoplasm of unspecified lung; I13.2 Hypertensive heart and chronic kidney disease with heart failure and with stage 5 chronic kidney disease, or end stage renal disease; N25.81 Secondary hyperparathyroidism of renal origin; E87.1 Hypo-osmolality and hyponatremia; I24.8 Other forms of acute ischemic heart disease; J91.0 Malignant pleural effusion; Z66 Do not resuscitate; Z51.5 Encounter for palliative care; D63.1 Anemia in chronic kidney disease; E11.22 Type 2 diabetes mellitus with diabetic chronic kidney disease; Z99.2 Dependence on renal dialysis; E83.41 Hypermagnesemia; E87.70 Fluid overload, unspecified; E78.5 Hyperlipidemia, unspecified; I50.9 Heart failure, unspecified; J44.9 Chronic obstructive pulmonary disease, unspecified; E87.5 Hyperkalemia
CPT/HCPCS: 32555; 36415; 36430; 36569; 36593; 36600; 71045; 71250; 80047; 80053; 80202; 82042; 82272; 82803; 82945; 83605; 83615; 83735; 83986; 84100; 84145; 84157; 84484; 85014; 85025; 85610; 85730; 86850; 86900; 86901; 86923; 87040; 87070; 87205; 88108; 88305; 88341; 88342; 89051; 93306; 94640; 94660; 94760; 96365; 96366; 96368; 96375; 99285-25; C1751; C1769; J0456; J0692; J0696; J0881; J1644; J2060; J2997; J3370; J7040; J7050; J7060; P9016